=== PATIENT | female | born 1995 | race Caucasian/White ===

== ENCOUNTER → 2017-12-05 | Day surgery (SDC) | payer BC ==
[~2017-12-05] MED LIST: Acetaminophen/HYDROcodone 325-5 MG Tab PO PRN; Bupivacaine 0.25% 10 ML SDV INJECT ONE; Bupivacaine 0.25% 10 ML SDV ONE; Glycopyrrolate 0.2 MG/ML SDV IVPUSH ONE; Ketorolac 30 MG/ML SDV IVPUSH ONE; Lactated Ringers 1,000 ML IV SCH; Lidocaine 2% 20 ML MDV INJECT ONE; Lidocaine 2% 20 ML MDV ONE; Neostigmine Methylsulfate 10 MG/10 ML MDV IV ONE; Ondansetron 4 MG/2 ML SDV IV ONE; Ondansetron 4 MG/2 ML SDV IVPUSH PRN; Propofol 200 MG/20 ML SDV IV ONE; Rocuronium 50 MG/5 ML Vial IV ONE; Succinylcholine 200 MG/10 ML MDV IV ONE; ceFAZolin 1 GM Vial IVPUSH ONE; fentaNYL 100 MCG/2 ML SDV IV ONE; fentaNYL 100 MCG/2 ML SDV IVPUSH PRN
--- NOTE | 2017-12-05 12:51 | OR ---
DATE OF OPERATION: 12/05/2017 PREOPERATIVE DIAGNOSIS: CHRONIC CHOLECYSTITIS WITH CHOLELITHIASIS. POSTOPERATIVE DIAGNOSIS: CHRONIC CHOLECYSTITIS WITH CHOLELITHIASIS. SURGEON: Maykel Layne MD PROCEDURE: LAPAROSCOPIC CHOLECYSTECTOMY. ANESTHESIA: General. DESCRIPTION OF PROCEDURE: After the patient was anesthetized satisfactorily, the patient's abdomen was prepped with iodoform. Patient was given sterile drapes. A small skin incision was made in the midline. It was carried down through skin, subcutaneous tissue, down through deep fascia. Deep fascia and peritoneum were opened. An 11-mm blunt trocar was introduced. CO2 gas was insufflated. Under direct camera vision, another 11-mm trocar was introduced in the subxiphoid space and a 5 mm in the right upper quadrant. Gallbladder was held in position, dissection was done, cystic duct and cystic artery were both exposed. Junction of the cystic duct with common bile duct and gallbladder was exposed. Both cystic duct and cystic artery were clipped and divided. The gallbladder was taken off its bed with the help of hook cautery and removed from the peritoneal cavity using Endo Pouch. Irrigation was done. Hemostasis was satisfactory. CO2 gas was desufflated out. Various ports were removed. The fascia was closed with 0 Ethibond running sutures. The skin was closed with 4-0 Vicryl subcuticular sutures. The patient was given sterile dressing. She tolerated the procedure well and left the operating room in satisfactory condition. BRADLY/LEANNE /[id number]
== END ==
LOC: CC.SDS 09:41
PROVIDERS: ATTEND Surgery
DX: K80.10 Calculus of gallbladder with chronic cholecystitis without obstruction (principal); Z88.1 Allergy status to other antibiotic agents; Z79.899 Other long term (current) drug therapy; F41.8 Other specified anxiety disorders
CPT/HCPCS: 36415; 84703; A9270-GY; J0330; J0690; J1885; J2405; J2704; J2710; J3010; J7120

== ENCOUNTER 2021-02-21 10:49 | Emergency (ER) | payer BC ==
--- NOTE | 2021-02-21 11:52 | EDM.PDOC ---
ED HPI GENERAL MEDICAL PROBLEM - General Chief Complaint: Lower Extremity Injury/Pain Stated Complaint: HURT RIGHT ANKLE Time Seen by Provider: 02/21/21 11:30 Source of Information: Reports: Patient History Limitations: Reports: No Limitations - History of Present Illness INITIAL COMMENTS - FREE TEXT/NARRATIVE: This patient is a 25 year old female that presents to the ER. Patient reports that she was walking down some steps, stepped sideways and twisted her right ankle. Denies all other injuries. Denies hitting her head, loc, n, v, vision changes, back pain. Onset: Today Duration: Hour(s): (2) Severity: Mild Improves with: Reports: None Worsens with: Reports: None Associated Symptoms: Reports: No Other Symptoms Right Feet Pain Score (Numeric/FACES): 9 - Related Data Allergies Allergy/AdvReac Type Severity Reaction Status Date / Time azithromycin [From Zithromax] Allergy Unknown Rash Verified 02/21/21 11:10 Home Meds: Home Meds . [No Known Home Meds] 02/21/21 [History] Past Medical History HEENT History: Reports: None - Past Surgical History HEENT Surgical History: Reports: Myringotomy w Tube(s), Tonsillectomy GI Surgical History: Reports: Cholecystectomy Social & Family History - Family History Family Medical History: Unobtainable - Tobacco Use Tobacco Use Status *Q: Never Tobacco User - Recreational Drug Use Recreational Drug Use: No Review of Systems - Review of Systems Review Of Systems: See Below Constitutional: Reports: No Symptoms Respiratory: Reports: No Symptoms Cardiovascular: Reports: No Symptoms GI/Abdominal: Reports: No Symptoms Musculoskeletal: Reports: Joint Pain (right ankle) Skin: Reports: No Symptoms Neurological: Reports: No Symptoms Psychiatric: Reports: No Symptoms ED EXAM, GENERAL - Physical Exam Exam: See Below Exam Limited By: No Limitations General Appearance: Alert, WD/WN, No Apparent Distress Respiratory/Chest: No Respiratory Distress, Lungs Clear, Normal Breath Sounds, No Accessory Muscle Use Cardiovascular: Normal Peripheral Pulses, Regular Rate, Rhythm, No Edema Peripheral Pulses: 2+: Posterior Tibial (L), Posterior Tibial (R), Dorsalis Pedis (L), Dorsalis Pedis (R) Back Exam: Normal Inspection Extremities: Normal Range of Motion, No Pedal Edema, Normal Capillary Refill, Other (right lateral ankle pain, tendereness, swelling. Stable ankle: Pulses +2, cap refill < 2 sec, sensory/motor function intact. neurovascular intact. ) Neurological: Alert, Oriented Psychiatric: Normal Affect, Normal Mood Skin Exam: Warm, Dry, Intact, Normal Color, No Rash Course - Vital Signs Last Recorded V/S: Last Vital Signs Temp 98.1 F 02/21/21 10:57 Pulse 93 02/21/21 10:57 Resp 16 02/21/21 10:57 BP 142/83 H 02/21/21 10:57 Pulse Ox - Orders/Labs/Meds Orders: Active Orders 24 hr Category Date Time Status Ankle Min 3V Rt [CR] Stat Exams 02/21/21 11:04 Taken - Radiology Interpretation Free Text/Narrative:: Right ankle xray: no acute fracture. Departure - Departure Time of Disposition: 11:45 Disposition: Home, Self-Care 01 Condition: Fair Clinical Impression: Right ankle sprain Qualifiers: Encounter type: initial encounter Involved ligament of ankle: other ligament Qualified Code(s): S93.491A - Sprain of other ligament of right ankle, initial encounter - Discharge Information *PRESCRIPTION DRUG MONITORING PROGRAM REVIEWED*: Not Applicable *COPY OF PRESCRIPTION DRUG MONITORING REPORT IN PATIENT MELVA: Not Applicable Instructions: Crutch Use, Adult, [id number], Ankle Sprain, [id number] Forms: ED Department Discharge Additional Instructions: Followup with your primary care provider if pain continues after 10 days for possible repeat xray and evaluation Return to the Er for worsening of condition or any emergent concerns Rest Ice Elevate Boot as needed Weight bearing as tolerated Crutches as needed Motrin of Tylenol for pain Sepsis Event Note (ED) - Evaluation Sepsis Screening Result: No Definite Risk - Focused Exam Vital Signs: Vital Signs Temp Pulse Resp BP 02/21/21 10:57 98.1 F 93 16 142/83 H - My Orders Last 24 Hours: My Active Orders 02/21/21 11:04 Ankle Min 3V Rt [CR] Stat - Assessment/Plan Last 24 Hours: My Active Orders 02/21/21 11:04 Ankle Min 3V Rt [CR] Stat Plan: PLEASE SEE RN NOTE FOR PFSH
== END 2021-02-21 12:00 | disposition home or self-care (01) ==
LOC: CC.ED 10:49
DX: S93.491A Sprain of other ligament of right ankle, initial encounter (principal); Z88.1 Allergy status to other antibiotic agents; X50.1XXA Overexertion from prolonged static or awkward postures, initial encounter
CPT/HCPCS: 73610-RT; 99283-25